=== PATIENT | male | born 1985 | race Caucasian/White ===

== ENCOUNTER 2021-01-29 11:14 | Observation (INO) ==
[2021-01-29] MEDS ORDERED: 0.9 % Sodium Chloride 500 ML IVC ONE (11:39)
[2021-01-29] MEDS ORDERED: Folic Acid 1 MG TABLET PO ONE (11:45)
[2021-01-29] MEDS ORDERED: Thiamine (B-1) 100 MG TABLET PO ONE (11:45)
[2021-01-29] MEDS ORDERED: *HR* LORazepam 2 MG/ML VIAL IVP ONE (11:47)
[2021-01-29 11:54] LABS: Hematocrit 45.6 % (37.5-50.1); Hemoglobin 16.2 g/dL (12.9-16.9); Mean Corpuscular HGB Conc 35.5 g/dL (31.6-35.5); Mean Corpuscular Hemoglobin 32.1 pg (28.0-33.3); Mean Corpuscular Volume 90.5 fL (83.0-100.0); Platelet Count 196 K/mcL (140-400); Red Blood Count 5.04 M/mcL (4.19-5.50); Red Cell Distribution Width 11.9 % (11.5-14.5); White Blood Count 4.3 K/mcL (4.3-11.1)
[2021-01-29 12:02] LABS: INR 1.1; Prothrombin Time 12.6 Seconds (9.4-12.1)
[2021-01-29 12:03] LABS: Lymphocytes # 2.8 K/mcL (0.6-4.6)
[2021-01-29 12:14] LABS: Alanine Aminotransferase 20 Units/L (7-52); Albumin/Globulin Ratio 1.2 (1.1-2.2); Alkaline Phosphatase 94 Units/L (34-104); Aspartate Amino Transferase 45 Units/L (13-39); BUN/Creatinine Ratio 11 (6-26); Bilirubin,Total 0.6 mg/dL (0.3-1.0); Blood Urea Nitrogen 10 mg/dL (6-20); Calcium 8.7 mg/dL (8.6-10.3); Carbon Dioxide 23 mEq/L (23-29); Chloride 102 mEq/L (98-107); Ethanol 329 mg/dL (Less than 10); Globulin 3.3 g/dL (2.4-3.5); Glucose 94 mg/dL (70-105); Lipase 49 Units/L (11-82); Osmolality,Calculated 281 (280-300); Sodium 136 mEq/L (136-145); Total Protein 7.3 g/dL (6.4-8.9); eGFR For African Americans > 60 (> 60); eGFR For Non-African Americans > 60 (> 60)
[2021-01-29 12:51] LABS: Monocytes # 0.2 K/mcL (0.0-1.3); Neutrophils # 1.3 K/mcL (1.6-8.9)
[2021-01-29 12:52] LABS: Platelet Estimate Normal (Normal)
[2021-01-29 13:29] LABS: Bilirubin,Urine Negative (Negative); Blood,Urine Negative (Negative); Clarity,Urine Clear (Clear); Color,Urine Light-Yellow (Yellow); Glucose,Urine (UA) Normal (Normal); Ketones,Urine Negative (Negative); Leukocyte Esterase,Urine Negative (Negative); Nitrite,Urine Negative (Negative); PH,Urine 5.5 pH Units (5.0-8.0); Protein,Urine Negative (Neg-Trace); Specific Gravity,Urine 1.017 (1.010-1.025); Urobilinogen,Urine Normal (Normal)
[2021-01-29 13:39] LABS: Amphetamine Screen,Urine Negative ng/mL (Cutoff=1000); Barbiturate Screen,Urine Negative ng/mL (Cutoff=200); Benzodiazepines Screen,Urine Negative ng/mL (Cutoff=200); Cannabinoid Screen,Urine Negative ng/mL (Cutoff = 50); Cocaine Screen,Urine Negative ng/mL (Cutoff= 300); Opiate Screen,Urine Negative ng/mL (Cutoff=300); Phencyclidine Screen,Urine Negative ng/mL (Cutoff=25)
[2021-01-29] MEDS ORDERED: *HR* LORazepam 2 MG/ML VIAL IVP PRN ×2 (13:44)
[2021-01-29] MEDS ORDERED: Ondansetron 4 MG/2 ML VIAL IVP PRN (13:46)
[2021-01-29] MEDS ORDERED: Melatonin 3 MG TABLET PO PRN (13:46)
[2021-01-29] MEDS ORDERED: Naloxone 0.4 MG/ML INJ IVP PRN (13:46)
[2021-01-29] MEDS ORDERED: traZODone 50 MG TABLET PO PRN (15:05)
[2021-01-29] MEDS ORDERED: hydrOXYzine pamoate 25 MG CAPSULE PO PRN (15:05)
[2021-01-29] MEDS: Gabapentin 300 MG CAPSULE PO SCH (21:15)
[2021-01-29] MEDS: Melatonin 3 MG TABLET PO SCH (21:16)
[2021-01-29] MEDS: Folic Acid 1 MG TABLET PO SCH (21:16)
[2021-01-29] MEDS: Ringers Solution, Lactated 1,000 ML IVC SCH (21:18)
[2021-01-30] MEDS: *HR* LORazepam 2 MG/ML VIAL IVP PRN ×2 (00:58→15:36)
[2021-01-30 03:28] LABS: Alanine Aminotransferase 17 Units/L (7-52); Albumin 3.3 g/dL (3.5-5.7); Albumin/Globulin Ratio 1.2 (1.1-2.2); Alkaline Phosphatase 78 Units/L (34-104); Aspartate Amino Transferase 59 Units/L (13-39); BUN/Creatinine Ratio 11 (6-26); Bilirubin,Total 1.3 mg/dL (0.3-1.0); Blood Urea Nitrogen 10 mg/dL (6-20); Calcium 8.5 mg/dL (8.6-10.3); Carbon Dioxide 23 mEq/L (23-29); Chloride 106 mEq/L (98-107); Globulin 2.8 g/dL (2.4-3.5); Glucose 91 mg/dL (70-105); Osmolality,Calculated 281 (280-300); Potassium 4.1 mEq/L (3.5-5.1); Sodium 136 mEq/L (136-145); Total Protein 6.1 g/dL (6.4-8.9); eGFR For African Americans > 60 (> 60); eGFR For Non-African Americans > 60 (> 60)
[2021-01-30] MEDS: Ringers Solution, Lactated 1,000 ML IVC SCH ×3 (05:41→20:39)
[2021-01-30] MEDS: Gabapentin 300 MG CAPSULE PO SCH ×3 (07:27→20:40)
[2021-01-30] MEDS: Thiamine (B-1) 200 MG in 0.9 % Sodium Chloride 50 ML IVPB SCH (07:27)
[2021-01-30] MEDS: Vitamin B Complex/Vit C/Vit E 1 EACH TABLET PO SCH (07:27)
[2021-01-30] MEDS: Folic Acid 1 MG TABLET PO SCH ×2 (07:27→20:40)
[2021-01-30] MEDS: Melatonin 3 MG TABLET PO SCH (20:40)
[2021-01-31] MEDS: Ringers Solution, Lactated 1,000 ML IVC SCH (04:31)
[2021-01-31 06:23] LABS: Hematocrit 36.3 % (37.5-50.1); Mean Corpuscular HGB Conc 34.2 g/dL (31.6-35.5); Mean Corpuscular Hemoglobin 31.6 pg (28.0-33.3); Mean Corpuscular Volume 92.6 fL (83.0-100.0); Mean Platelet Volume 9.8 fL (9.4-12.4); Platelet Count 123 K/mcL (140-400); Red Blood Count 3.92 M/mcL (4.19-5.50); Red Cell Distribution Width 11.9 % (11.5-14.5); White Blood Count 3.6 K/mcL (4.3-11.1)
[2021-01-31 06:24] LABS: Hemoglobin 12.4 g/dL (12.9-16.9)
[2021-01-31] MEDS: Vitamin B Complex/Vit C/Vit E 1 EACH TABLET PO SCH (07:41)
[2021-01-31] MEDS: Gabapentin 300 MG CAPSULE PO SCH ×2 (07:41→15:43)
[2021-01-31] MEDS: Folic Acid 1 MG TABLET PO SCH (07:42)
[2021-01-31 07:44] LABS: Alanine Aminotransferase 14 Units/L (7-52); Albumin 3.4 g/dL (3.5-5.7); Albumin/Globulin Ratio 1.5 (1.1-2.2); Alkaline Phosphatase 72 Units/L (34-104); Aspartate Amino Transferase 30 Units/L (13-39); BUN/Creatinine Ratio 9 (6-26); Bilirubin,Total 0.6 mg/dL (0.3-1.0); Blood Urea Nitrogen 8 mg/dL (6-20); Calcium 8.5 mg/dL (8.6-10.3); Carbon Dioxide 26 mEq/L (23-29); Chloride 107 mEq/L (98-107); Globulin 2.3 g/dL (2.4-3.5); Glucose 127 mg/dL (70-105); Osmolality,Calculated 288 (280-300); Potassium 3.1 mEq/L (3.5-5.1); Sodium 139 mEq/L (136-145); Total Protein 5.7 g/dL (6.4-8.9); eGFR For African Americans > 60 (> 60); eGFR For Non-African Americans > 60 (> 60)
[2021-01-31] MEDS: Thiamine (B-1) 200 MG in 0.9 % Sodium Chloride 50 ML IVPB SCH (07:52)
[2021-01-31 14:56] VITALS: BP 132/81
== END 2021-01-31 19:46 | disposition left against medical advice (07) ==
LOC: 3BNU 11:14 → EMEROOARM 11:14 → SUATTDRO 13:54 → 3BNU 14:39
PROVIDERS: ADMIT Internal Medicine; ATTEND Nurse Practitioner